=== PATIENT | female | born 1985 | race Caucasian/White ===

== ENCOUNTER 2016-08-07 11:32 | Day surgery (SDC) | payer OTHER ==
[~2016-08-07] VITALS: Ht 160 cm; Wt 97.4 kg
[2016-08-07] VITALS (12 sets, daily range): BP systolic 103–135; BP diastolic 55–90; PULSE 50–65; RESP 12–22; O2SAT 96–100
[~2016-08-07 11:32] MED LIST: ACET325T51 PO; CeFAZolin Inj 2 GM in IV Premix 1 EACH IV ONE; IBUP800T28 PO
[2016-08-07] MEDS ORDERED: Ketamine 10 mg/mL 20 mL Inj ONE (11:33)
[2016-08-07] MEDS ORDERED: Rocuronium 10 mg/mL 5 mL Inj ONE (11:33)
[2016-08-07] MEDS ORDERED: Ondansetron 2 mg/mL 2 mL Inj ONE (11:33)
[2016-08-07] MEDS ORDERED: Propofol 10,000 mCg/mL 20 mL Inj ONE (11:33)
[2016-08-07] MEDS ORDERED: fentaNYL-PF 50 mCg/mL 2 mL Inj ONE (11:33)
[2016-08-07] MEDS ORDERED: Dexamethasone 4 mg/mL Inj ONE (11:33)
[2016-08-07] MEDS ORDERED: CeFAZolin Inj 2 gm / 50mL D5W IV ONE (11:46)
[2016-08-07] MEDS ORDERED: MULT-1018 PO (12:01)
[2016-08-07] MEDS ORDERED: Lactated Ringer's 1,000 ML IV ONE (12:23)
[2016-08-07] MEDS ORDERED: Bupivacaine 0.5%/EPI 50 mL Inj INFILTRATE ONE (15:25)
[2016-08-07] MEDS ORDERED: Lactated Ringer's 500 ML IV PRN (15:44)
[2016-08-07] MEDS ORDERED: Lactated Ringer's 1,000 ML IV SCH (15:44)
--- NOTE | 2016-08-07 15:44 | PCM.HPANE ---
Patient Data Surgeon Admitting Provider: Attending Provider:Edmond Toledo MD Primary Care Physician:Kathryn Sierra Other Provider:Florina Velasco Anesthesia Reason for Visit Acute Cholecystis Ht/WT & BMI Height (Feet): 5 Height (Inches): 3 Weight (Kilograms): 97.4 Body Mass Index 38.00 Allergies Coded Allergies: nifedipine (Verified Allergy, Unknown, rash, 08/07/16) Past Anesthesia History Anesthesia History: Denies:: Abnormal Airway, Anesthesia Reactions (no prior surgery), Difficult Intubation, Fam Anesthesia Reaction Diabetes History Hx Diabetes?: No MRSA MRSA: No Medications Hypertension Medication: No Home Meds Incl Beta Maria Alejandra: No Reported Medications Multivitamin (Multi Vitamin Daily)1 Each Tablet1 Each PO DAILY 30 Days Ref 0 08/07/16 Acetaminophen 325 Mg Orcceo500 Mg PO Q4H PRN For Pain Ref 0 08/06/16 Ibuprofen 800 Mg [id number] Mg PO TID PRN For Pain Ref 0 08/06/16 Discontinued Reported Medications Albuterol-Expunged Drug, Do Not Renew! (ProAir HFA-Expunged Drug, Do Not Renew!) 200 Puff/8.5 Gm Hfa.aer.ad8.5 Gm INH PRN 06/24/12 PNV CMB#95/FERROUS FUMARATE/FA-Expunged Drug, (-Expunged Drug, Do Not Renew!)1 Each Tablet1 Each PO DAILY 06/24/12 Nifedipine-Expunged Drug, Do Not Renew! 30 Mg Tber30 Mg PO BID DO NOT CRUSH OR CHEW TABLET 06/24/12 History History of ENT Problems?: Yes HEENT History: Positive for:: TMJ (grinds occasional, no nightguard) Denies:: Abnormal Airway Cataracts Difficult Intubation Dysphagia Glaucoma Hearing Problem Sinus Problem Denture Type: None Teeth Condition: Within Normal Limits Hx of Heart Problems?: No Cardiovascular History: Denies:: AICD Abdominal Aortic Aneurism Atrial Fibrillation Cardiac Surgery Congestive Heart Failure Coronary Artery Disease Edema Heart Murmur Hypertension Irregular Heartbeat Pacemaker Peripheral Vascular Rheumatic Fever Hx of Respiratory Problem?: No Respiratory History: Denies:: Asthma COPD Emphysema Oxygen Administration Pneumonia Tuberculosis Use of C-PAP Machine Use of Inhalers / NEBS Hx Neurologic Problems?: No Neurological History: Denies:: Alzheimer's Disease CVA Dementia Dizziness Headaches Multiple Sclerosis Parkinson's Disease Seizures TIA Hx of GI Problems?: Yes Hx of Problems?: No Genitourinary History: Denies:: Kidney Stones Urinary Tract Infection Female Hx: Denies:: Currently Problems with Breasts? Skin History: Denies:: History Skin Disorders? Pressure Ulcers Hx Musculoskeletal Problems?: No Musculoskeletal History: Denies:: Back Injury Fibromyalgia Joint Replacement Musculoskeletal Trauma Myasthenia Gravis Osteoarthritis Systemic Lupus Hx of Psycho/Social Problems?: No Psycho Social History: Denies:: Anxiety Hx Depression Hx Surgeries?: No Hx Any Other Health Problems?: No Other History: Denies:: Cancer Thyroid Disease History Blood Transfusions: Positive for:: Accept Blood Products? Denies:: Blood Transfusions Hx Diabetes: No Hx Alcohol Use: YesAlcoholic Drinks Per Day: 2 drinks weekly, if thatHx Substance Use: NoHave You Smoked inLast 12 mo: No Stop/Bang Treated for Sleep Apnea?: No Do You Have a CPAP Machine?: No S-Snoring: Do You Snore Loudly: No T-Tired: feel tired, fatigued: Yes O-Obsered: Observed not breath: No P-Blood Pressure: treated: No B- Body Mass Index > 35 kg/m2: No A- Age over 50: No N- Neck Large Circumference: No G- Gender Male: No KIAH Total Score: 1 Risk Assessment Category Category 1A: Patient has history of documented sleep apnea, and HAS NOT received any narcotic, sedative or anesthesia administration during this stay. Category 1B: Patient has history of documented sleep apnea, and HAS received any narcotic , sedative or anesthesia administration during this stay Category 2: Patient has SUSPECTED Obstructive Sleep Apnea, and HAS received any narcotic , sedative or anesthesia administration during this stay. Category 3: Patient has SUSPECTED Obstructive Sleep Apnea and HAS NOT received narcotic, sedative or anesthesia administration during this stay. Category 4: Outpatient in Procedural Areas with known sleep apnea or who screen positive for High Risk via the STOP/BANG questionnaire. Exam Exam Vital Signs Vital Signs Date Time Temp Pulse Resp B/P Pulse Ox O2 Delivery O2 Flow Rate FiO2 08/07/16 12:04 36.2 62 16 135/89 98 Room Air General Appearance: Alert, Oriented X3, Cooperative, No Acute Distress HEENT/AIRWAY: MP 2 Lungs: Clear to Auscultation, Normal Air Movement Heart: Exam Unremarkable, Regular Rate/Rhythm, No Murmurs/Rubs/Gallops Meds/Labs/Diagnostics Admission Meds Current Medications Lactated Ringer's (Lr) 1,000 ml @ ud STK-MED ONCE IV Last administered on t 12:23; Start 08/07/16 at 12:23; Stop 08/07/16 at 12:24; Status DC Plan Impression Patient chart reviewed, patient interviewed and anesthestic plan with risks, benefits, and alternatives discussed, and informed consent obtained. ASA Physical Status: ASA2 Mod Systemic Disease Anesthetic Plan: GA Bene/Risks/Altern/Consents: Yes HP Complete Prior to Induction: Yes Wolfgang Blackwell MD Aug 07, 2016 15:44
[2016-08-07] MEDS ORDERED: Dexamethasone 4 mg/mL Inj IVPUSH PRN (15:45)
[2016-08-07] MEDS ORDERED: HYDROmorphone 1 mg/mL Inj IVPUSH PRN (15:45)
[2016-08-07] MEDS ORDERED: MetoCLOpramide 5 mg/mL 2 mL Inj IVPUSH PRN (15:45)
[2016-08-07] MEDS ORDERED: Ondansetron 2 mg/mL 2 mL Inj IVPUSH PRN (15:45)
[2016-08-07] MEDS ORDERED: Phenylephrine 10,000 mCg/mL Inj IVPUSH PRN (15:45)
[2016-08-07] MEDS ORDERED: EPHEDrine Sulfate 50 mg/mL Inj IVPUSH PRN (15:45)
--- NOTE | 2016-08-07 15:51 | PCM.DISURG ---
Surgical Discharge Instruction Date of Service Aug 07, 2016 Dates of Hospitalization Date of Hospital Admission Providers Admitting Physician: Primary Care Physician: Kathryn Sierra Attending Physician: Edmond Toledo MD Discharge Diagnosis Discharge Diagnosis Intractable biliary colic Diet Discharge Diet: Low fat Activity Discharge Activity-General: No lifting >15 pounds for 2 weeks Dressing and Incisional Care Dressing Care: Allow Steri Stripes to fall off, Remove outer dressing after 24 hrs Hygiene: May shower after (24 hours) Follow Up Plan Follow Up Plan In the general surgery [place] postoperative clinic in 2-3 weeks Call your provider for: Fever (over 101.5), Vomiting, Discharge @ incision, pus discharge Edmond Toledo MD Aug 07, 2016 15:51
--- NOTE | 2016-08-07 15:55 | PCM.SURGOP ---
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 She had an ultrasound which showed a mobile gallstone, as well as a gallbladder fundus polyp, but no thickening of the gallbladder wall, no pericholecystic fluid. Her labs were normal including normal liver function tests. After discussion of risks and benefits, she agreed to proceed with laparoscopic cholecystectomy. Findings: There were no gross signs of active inflammation of the gallbladder. The critical view was easily obtained, so no cholangiogram was obtained. Procedure Details After smooth induction of general endotracheal anesthesia, the patient was placed in the supine position with the right arm tucked. A procedural pause was performed according to the SCOAP checklist, and all were found to be in agreement. A curvilinear infraumbilical incision was made. Dissection was carried down with electrocautery until the midline fascia was incised vertically, and the peritoneal cavity entered without difficulty. Pneumoperitoneum was established. Inspection revealed some inflammatory adhesions to the fundus of the gallbladder. 3 additional ports were placed under direct visualization. One was placed in the midline epigastrium, and 2 in the right subcostal region. Adhesions were taken down from the gallbladder fundus with electrocautery. The fundus of the gallbladder was then grasped and retracted cephalad. The infundibulum of the gallbladder was grasped. The peritoneum was incised. The cystic artery was doubly clipped and divided. The critical view was obtained using the infundibular technique. Because there were no active inflammatory changes in the critical view easily showed a long normal cystic duct, I elected not to perform a cholangiogram. 2 clips were placed on the common bile duct side of the cystic duct, one clip was placed on the gallbladder side, and the cystic duct was divided. The remainder of the gallbladder was dissected out of the gallbladder fossa with electrocautery. The gallbladder was placed into an Endo Catch bag and removed from the umbilical port site. It was passed off the field and sent for permanent pathology. The gallbladder fossa was inspected. Hemostasis was adequate, and there was no bile leak. The ports were removed under direct visualization and pneumoperitoneum was released. The fascia of the umbilical port site was closed using an 0 Vicryl suture in a figure-of- eight. The skin incisions were closed using running 4-0 Monocryl subcuticular stitches. Steri-Strips and sterile dressings were applied. At the end of the case all needle and sponge counts were correct 2. The patient was awakened from anesthesia without difficulty, and taken to the recovery room in satisfactory condition, having tolerated the procedure well. Complications There were no periprocedural complications identified. Surgical Specimen Removed: Yes Specimen sent to Pathology: Yes Surgical Specimen description: Gallbladder Anesthetic Plan: GA Grafts, Implants: None Output, Estimated Blood Loss: 5 Blood Administration during godinez: No Drains: None Catheters: None copies to: Cinthya Duckworth Joshua D MD Aug 07, 2016 15:55
[2016-08-07] MEDS: fentaNYL-PF 50 mCg/mL 2 mL Inj IVPUSH PRN ×4 (16:22→17:00)
[2016-08-07] MEDS ORDERED: Lactated Ringer's 500 ML IV ONE (17:13)
--- NOTE | 2016-08-10 14:49 | PATH ---
SURGICAL PATHOLOGY Attending Physician:Yoselyn Loomis CASE STATUS: Signed Out PATIENT NAME: KARLA RODRÍGUEZ PID: [id number] : 1985 DATE COLLECTED:08/07/2016 00:00 SPECIMEN: Gallbladder CLINICAL HISTORY: ACUTE CHOLECYSTITIS 1). GALLBLADDER FINAL DIAGNOSIS: 1.GALLBLADDER: ACALCULOUS CHRONIC CHOLECYSTITIS WITH PROMINENT CHOLESTEROLOSIS AND ASSOCIATED SO-CALLED "CHOLESTEROL POLYPS," NEGATIVE FOR ATYPIA. NEGATIVE FOR EVIDENCE OF SIGNIFICANT ACUTE INFLAMMATION. ICD10 K81.1 GROSS DESCRIPTION: The specimen is received in one formalin filled container labeled with the patient's name, sublabeled "gallbladder" and consists of an intact 7.5 x 3.0 x 3.0 CM gallbladder. The serosa is smooth. The wall is 0.2-0.3 CM in thickness. The mucosa is a dark green in color with multiple small light yellow friable areas. The lumen contains a dark green mucoid material and no calculus are noted. 5 banking representative sections are submitted in one cassette. 08/08/2016 DAC MICRO DESCRIPTION: See diagnosis. ICD-9 CODES: CPT CODES: 1: 95282 Electronically Signed Out Wale Kendrick MD [facility] Pathology [facility] [address] [place] [address] Technical component performed at [facility], [facility] [address], [place], [address]
--- NOTE | 2016-08-11 12:17 | PCM.ANEP1 ---
Post Anesthesia PACU Phase 1 Assessment Anesthetic Administered: GA Level of Alertness: Awake, talking WALTERS's with Equal Strength: Yes Pain: No Nausea or Vomiting: No CV Function & Hydration Stable: Yes Airway Device: airway patent, no device Oxygen Delivery: Simple Mask Lungs: Clear to Auscultation, Normal Air Movement Dermatome Level: Full Sensation PACU Phase 2 Assessment Complications: No Follow up Care: No Patient Instructions Provided: N/A Wolfgang Blackwell MD Aug 11, 2016 12:16
== END 2016-08-07 23:59 | disposition home or self-care (01) ==
LOC: SAS 11:32
PROVIDERS: ATTEND Student in an Organized Health Care Education/Training Program
DX: K80.10 Calculus of gallbladder with chronic cholecystitis without obstruction (principal); J30.9 Allergic rhinitis, unspecified; E66.3 Overweight; Z68.38 Body mass index [BMI] 38.0-38.9, adult; Z87.891 Personal history of nicotine dependence
CPT/HCPCS: 47562; 88304; J0690; J1100; J1170; J1885; J2250; J2405; J3010; J7120

== ENCOUNTER 2016-08-07 23:48 | Emergency (ER) | payer OTHER ==
[~2016-08-07] VITALS: Ht 160 cm; Wt 98.2 kg
[~2016-08-07 23:48] MED LIST changes: -CeFAZolin Inj 2 GM in IV Premix 1 EACH IV ONE; +MULT-1018 PO
[2016-08-07 23:53] VITALS: BP 136/75; PULSE 67; RESP 16; O2SAT 95
--- NOTE | 2016-08-07 23:55 | ED.REPORT ---
HPI-General Illness Date of Service Aug 07, 2016 ED Provider: Dr. Tomi Vazquez M.D. The patient is a 31 year old female with a medical history including intractable biliary colic s/p recent laparoscopic cholecystectomy (08/07/16) who presents to the ED after her lower surgical incision site began bleeding just prior to arrival. The patient also reports pain at the surgical site. She denies other symptoms at this time. Nursing Notes Stated Complaint: PAIN/CHECK DRESSING POST SURGERY Chief Complaint: General Complaint Nursing Notes Reviewed: Yes Allergies: Coded Allergies: nifedipine (Verified Allergy, Unknown, rash, 08/07/16) Scheduled Multivitamin (Multi Vitamin Daily) 1 Each Tablet 1 EACH PO DAILY Scheduled PRN Acetaminophen (Acetaminophen) 325 Mg Tablet 325 MG PO Q4H PRN PRN For Pain Ibuprofen (Ibuprofen) 800 Mg Tablet 800 MG PO TID PRN PRN For Pain General Time Seen by MD: 23:55 Chief Complaint Other (Bleeding Surgical Incision) Hx Obtained From: Patient Arrived By: Walk-in Sudden in Onset?: Yes Onset Occurred: Just prior to arrival Symptom Duration: Since onset Location: : Abdomen Quality: Painful Severity: Current: Moderate Severity: Maximum: Moderate Pertinent Negative: Relieved by nothing Recent Healthcare: Recent doctor visit, Previous surgery Past Medical History Past Medical History Intractable biliary colic s/p laparoscopic cholecystectomy TMJ Past Surgical History Laparoscopic cholecystectomy 08/07/16 Family History The patient's mother has had coronary artery disease and myocardial infarction. The patient's parents have hypertension and diabetes. Smoking History Unknown if Ever Smoker Social History Other Social History: Good social support Ambulatory Status Independent Review of Systems + Abdominal surgical incision site bleeding and pain Full Review of Systems Constitutional: Denies: Fever Respiratory: Denies: Non-productive cough, Shortness of breath GI: Denies: Diarrhea, Vomiting Complete sys rev & neg: except as marked. Physical Exam Vital Signs Vital Signs Date Time Temp Pulse Resp B/P Pulse Ox O2 Delivery O2 Flow Rate FiO2 08/08/16 01:21 36.6 55 16 135/89 100 Room Air 08/07/16 23:53 36.5 67 16 136/75 95 Room Air Initial VS: Reviewed Head / Eyes: Atraumatic, Normocephalic ENT: Conjunctiva normal, No scleral icterus Neck: Supple, Full range of motion Skin: Warm, Dry, No cyanosis Neurologic: Alert, Oriented, Nonfocal Psychiatric: Mood/affect normal, Behavior normal, Normal thought content General/Constitutional: Awake, Alert Abdomen: Soft Nonpulsatile bleeding of infraumbilical surgical wound resolved with steady pressure No dehiscence or opening of the wound Re-Eval/Medical Decision Med Decision/Clinical Course 31-year-old venous bleeding from infraumbilical operative stab wound. Controlled here with direct pressure. Direct pressure demonstrated. Discharged home with gauze packs and instructions. Follow-up with surgeon. Source of Hx: Old records Time of Eval: 00:52 Patient Status: Condition resolved Re-Evaluation/Progress Note: Patient's bleeding has resolved. Discussed with patient diagnosis and plan for discharge. Follow-up and return to the ER instructions given. Patient agrees with plan for care and all questions were addressed. Counseled Regarding: Diagnosis, Need for follow-up, When/why to return to ED Discharge & Departure Shift Change Sign-Out Response to Therapy: Improved Primary Impression: Bleeding Disposition: Home Discharge Condition All VS Reviewed: Yes Condition: Improved Patient Instructions: Postoperative Bleeding (ED) Additional Instructions: Continue dry sterile dressings. Apply direct pressure for at least fifteen minutes for any bleeding of concern. If that does not control things, return here anytime. Follow up with your doctor in the office. Follow-up with your surgeon. Referrals: Kathryn Sierra (PCP) Neto Attestation Portions of this note were transcribed by Xiomy Ramesh. I, Dr. Vazquez, personally performed the history, physical exam, and medical decision-making; I reviewed and confirmed the accuracy of the information in the transcribed note. Signed by: Neto Hobbs, 08/08/2016, 01:35 copies to: Kathryn Sierra Christopher W MD Aug 07, 2016 23:55 XIOMY RAMESH Aug 08, 2016 00:00
[2016-08-08 01:21] VITALS: BP 135/89; PULSE 55; RESP 16; O2SAT 100
== END 2016-08-08 01:00 | disposition home or self-care (01) ==
LOC: SED 23:48
DX: L76.22 Postprocedural hemorrhage of skin and subcutaneous tissue following other procedure (principal); Y83.8 Other surgical procedures as the cause of abnormal reaction of the patient, or of later complication, without mention of misadventure at the time of the procedure; Y92.9 Unspecified place or not applicable; Y93.9 Activity, unspecified; Y99.9 Unspecified external cause status; Z87.19 Personal history of other diseases of the digestive system; Z90.49 Acquired absence of other specified parts of digestive tract; Z88.8 Allergy status to other drugs, medicaments and biological substances